=== PATIENT | female | born 1995 | race Caucasian/White ===

== ENCOUNTER 2017-10-01 04:14 | Inpatient (IN) | payer MEDICAID ==
[~2017-10-01] VITALS: Ht 154.9 cm; Wt 97.2 kg
[~2017-10-01 04:14] MED LIST: LIDO20SO PO; MACROBID PO; NAPR-1154 PO; NO MEDS
[2017-10-01 05:00] LABS: URINE HCG NEGATIVE (NEG)
[2017-10-01 05:07] LABS: CLARITY,URINE CLEAR (Clear); COLOR,URINE YELLOW (Yellow); GLUCOSE, URINE NEGATIVE (Neg); KETONES,URINE NEGATIVE (Neg); LEUKOCYTE ESTERASE ,URINE NEGATIVE (Neg); NITRITES, URINE NEGATIVE (Neg); OCCULT BLOOD,URINE NEGATIVE (Neg); PH,URINE 6.5 (4.8-8.0); PROTEIN,URINE NEGATIVE (Neg); UROBILINOGEN,URINE 0.2 E.U/dL (0.2-1.0)
[2017-10-01 05:08] LABS: UA COLLECTION TYPE CLN CATCH MIDSTREAM
[2017-10-01 05:35] LABS: BASOPHILS % (AUTO) 0.1 % (0-1); EOSINOPHILS # (AUTO) 0.3 X10'3 (0-0.9); HEMATOCRIT 36.6 % (35.0-45.0); HEMOGLOBIN 12.4 g/dl (12.0-16.0); LYMPHOCYTES # (AUTO) 4.1 X10'3 (1.1-4.8); LYMPHOCYTES % (AUTO) 24.2 % (21-51); MEAN CORPUSCULAR HEMOGLOBIN 26.4 PG (27.0-31.0); MEAN CORPUSCULAR HGB CONC 34.1 % (33.0-36.5); MEAN CORPUSCULAR VOLUME 77.5 FL (78-98); MEAN PLATELET VOLUME 7.2 FL (7.4-10.4); MONOCYTES % (AUTO) 5.9 % (2-12); NEUTROPHILS # (AUTO) 11.4 X10'3 (1.8-7.7); NEUTROPHILS % (AUTO) 67.8 % (42-75); PLATELET COUNT 383 X10'3 (140-440); RED BLOOD COUNT 4.72 X10'6 (4.20-5.60); RED CELL DISTRIBUTION WIDTH 15.9 % (11.5-14.5); WHITE BLOOD COUNT 16.8 X10'3 (4.5-11.0)
[2017-10-01 05:44] LABS: PROTHROMBIN TIME 9.9 SECONDS (9.0-12.0)
[2017-10-01 05:49] LABS: ALANINE AMINOTRANSFERASE 41 U/L (12-78); ALBUMIN 3.3 G/DL (3.4-5.0); ALBUMIN/GLOBULIN RATIO 0.8 (1.1-1.5); ALKALINE PHOSPHATASE 103 IU/L (46-116); AMYLASE 39 U/L (25-115); ANION GAP 11 (8-16); ASPARTATE AMINO TRANSFERASE 19 U/L (10-37); BILIRUBIN,TOTAL 0.1 MG/DL (0.1-1.0); BLOOD UREA NITROGEN 12 MG/DL (7-18); BUN/CREATININE RATIO 17.4 (6.6-38.0); CALCIUM 9.5 MG/DL (8.5-10.1); CHLORIDE 107 MMOL/L (99-107); CREATININE 0.69 MG/DL (0.40-0.90); GLUCOSE 111 MG/DL (70-104); LIPASE 165 U/L (73-393); POTASSIUM 3.8 MMOL/L (3.5-5.1); SODIUM 142 MMOL/L (135-145); TOTAL CARBON DIOXIDE 24.3 MMOL/L (24-32); TOTAL PROTEIN 7.3 G/DL (6.4-8.2); eGFR > 90 ML/MIN
[2017-10-01] MEDS ORDERED: MORPHINE 2MG in 2ml NS syringe IV PRN (06:45)
[2017-10-01] MEDS ORDERED: normal saline 1000ML IV soln IVB ONE (06:45)
[2017-10-01] MEDS ORDERED: proCHLORperazine 10 MG/2 ml inj IV ONE (06:45)
[2017-10-01] MEDS: morphine 4 MG/ML inj SYRINge IV PRN ×2 (06:59→07:51)
[2017-10-01] MEDS ORDERED: ondansetron/PF 4mg/2ml inj IV PRN (11:15)
[2017-10-01] MEDS ORDERED: HYDROmorphone inj. 0.5 MG/0.5 ML DISP.SYRIN IV PRN ×2 (11:15)
[2017-10-01] MEDS ORDERED: magnesium hydroxide 30ml (MOM) UD suspension PO PRN (11:15)
[2017-10-01] MEDS ORDERED: magnesium 2GM in 50ml NS 50 ML IV PRN (11:15)
[2017-10-01] MEDS ORDERED: potassium Cl 40MEQ/NS 500ml 500 ML IV PRN ×2 (11:15)
[2017-10-01] MEDS ORDERED: magnesium 4gm in 100ml NS 100 ML IV PRN (11:15)
[2017-10-01] MEDS ORDERED: acetaminophen 325mg tablet PO PRN (11:15)
[2017-10-01] MEDS ORDERED: [UNRECOGNIZED DRUG - OTHER] PO ONE ×3 (11:32)
[2017-10-01] MEDS ORDERED: LIDOCAINE VISCOUS PO ONE ×3 (11:32)
[2017-10-01] MEDS ORDERED: DIPHENHYDRAMINE PO ONE ×3 (11:32)
[2017-10-01] MEDS ORDERED: mag hydrox/Alum hydrox/simeth 30ml oral suspension ONE (12:00)
[2017-10-01] MEDS ORDERED: LIDOcaine Viscous 15ml cup ONE (12:00)
[2017-10-01] MEDS ORDERED: morphine/NS 5 mg/ml CADD 50 ML IV SCH (12:16)
[2017-10-01] MEDS ORDERED: naloxone 0.4 mg/ml inj IV PRN (12:20)
[2017-10-01] MEDS ORDERED: NORMAL SALINE IV PRN (12:20)
[2017-10-01] MEDS ORDERED: CADD PCA waste documentation MC PRN (12:20)
[2017-10-01] MEDS ORDERED: SINCALIDE IV PRN (12:20)
[2017-10-01] MEDS: HYDROmorphone/NS 1 mg/ml CADD 50 ML IV SCH ×7 (13:00→23:00)
[2017-10-01] MEDS: normal saline 1000ml 1,000 ML IV SCH ×2 (13:00→21:13)
[2017-10-01] MEDS ORDERED: MORPHINE CADD 5 MG/ML 50ML IV SCH (13:00)
[2017-10-01] MEDS: pantoprazole 40 MG vial IV SCH ×2 (13:01→20:27)
[2017-10-01 16:17] VITALS: BP 120/78
[2017-10-01 20:00] VITALS: BP 105/62
[2017-10-02] VITALS: BP 115/77
[2017-10-02] MEDS: HYDROmorphone/NS 1 mg/ml CADD 50 ML IV SCH ×7 (01:00→12:38)
[2017-10-02] MEDS: normal saline 1000ml 1,000 ML IV SCH ×2 (01:08→10:50)
[2017-10-02 05:48] LABS: BASOPHILS % (AUTO) 0.4 % (0-1); EOSINOPHILS # (AUTO) 0.1 X10'3 (0-0.9); EOSINOPHILS % (AUTO) 0.7 % (0-6); HEMATOCRIT 35.1 % (35.0-45.0); HEMOGLOBIN 11.4 g/dl (12.0-16.0); LYMPHOCYTES # (AUTO) 3.6 X10'3 (1.1-4.8); LYMPHOCYTES % (AUTO) 30.4 % (21-51); MEAN CORPUSCULAR HEMOGLOBIN 25.6 PG (27.0-31.0); MEAN CORPUSCULAR HGB CONC 32.5 % (33.0-36.5); MEAN CORPUSCULAR VOLUME 78.8 FL (78-98); MEAN PLATELET VOLUME 7.6 FL (7.4-10.4); MONOCYTES # (AUTO) 0.8 X10'3 (0-0.9); MONOCYTES % (AUTO) 6.7 % (2-12); NEUTROPHILS # (AUTO) 7.4 X10'3 (1.8-7.7); NEUTROPHILS % (AUTO) 61.8 % (42-75); PLATELET COUNT 349 X10'3 (140-440); RED BLOOD COUNT 4.46 X10'6 (4.20-5.60); RED CELL DISTRIBUTION WIDTH 16.1 % (11.5-14.5)
[2017-10-02 06:44] LABS: ALANINE AMINOTRANSFERASE 37 U/L (12-78); ALBUMIN 2.7 G/DL (3.4-5.0); ALBUMIN/GLOBULIN RATIO 0.8 (1.1-1.5); ALKALINE PHOSPHATASE 92 IU/L (46-116); ANION GAP 10 (8-16); ASPARTATE AMINO TRANSFERASE 19 U/L (10-37); BILIRUBIN,TOTAL 0.3 MG/DL (0.1-1.0); BLOOD UREA NITROGEN 7 MG/DL (7-18); CALCIUM 8.5 MG/DL (8.5-10.1); CHLORIDE 107 MMOL/L (99-107); GLUCOSE 92 MG/DL (70-104); MAGNESIUM 1.8 MG/DL (1.5-2.4); POTASSIUM 3.6 MMOL/L (3.5-5.1); SODIUM 141 MMOL/L (135-145); TOTAL CARBON DIOXIDE 23.6 MMOL/L (24-32); TOTAL PROTEIN 6.1 G/DL (6.4-8.2); eGFR > 90 ML/MIN
[2017-10-02 07:37] VITALS: BP 135/85
[2017-10-02] MEDS ORDERED: K and/or MAG REPLACEMENT MC SCH (08:00)
[2017-10-02] MEDS: pantoprazole 40 MG vial IV SCH (09:30)
[2017-10-02 11:39] VITALS: BP 107/74
[2017-10-02] MEDS ORDERED: FAMO20TA8 PO (14:01)
== END 2017-10-02 15:45 | disposition home or self-care (01) | DRG 241 ==
LOC: ER 04:14 → ED HOLD 11:13 → EDBEDREQ 15:32 → MED 3N 16:04
PROVIDERS: ADMIT Family Medicine; ATTEND Family Medicine
DX: K29.70 Gastritis, unspecified, without bleeding (principal); Z68.41 Body mass index [BMI] 40.0-44.9, adult; K80.20 Calculus of gallbladder without cholecystitis without obstruction; F17.210 Nicotine dependence, cigarettes, uncomplicated; K20.9 Esophagitis, unspecified; K52.9 Noninfective gastroenteritis and colitis, unspecified; M54.9 Dorsalgia, unspecified; Z80.51 Family history of malignant neoplasm of kidney; Z83.3 Family history of diabetes mellitus; Z88.0 Allergy status to penicillin; Z88.2 Allergy status to sulfonamides; Z79.899 Other long term (current) drug therapy
CPT/HCPCS: 36415; 74176; 80053; 81003; 81025; 82150; 83690; 83735; 85025; 85610; 87070; 99285; C9113; J0780; J1170; J2270; J2405; J2805; J7030; J7040; Q0163